=== PATIENT | male | born 1955 | race Caucasian/White ===

== ENCOUNTER 2017-01-20 08:43 | Emergency (ER) | payer OTHER ==
[2017-01-20 08:59] VITALS: BP 118/90
[2017-01-20] MEDS ORDERED: PROPARACAINE HCL 0.5% OPTH OP ONE (08:59)
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
[2017-01-20] MEDS: PROPARACAINE HCL 0.5% OPTH OP ONE (09:24)
== END 2017-01-20 09:35 | disposition home or self-care (01) ==
LOC: ED 08:43
DX: S05.01XA Injury of conjunctiva and corneal abrasion without foreign body, right eye, initial encounter (principal); X58.XXXA Exposure to other specified factors, initial encounter; Y93.9 Activity, unspecified; Y99.9 Unspecified external cause status
CPT/HCPCS: 99283; A9270-GY

== ENCOUNTER 2017-11-15 19:00 | Emergency (ER) | payer OTHER ==
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
[2017-11-15] MEDS: CEPHALEXIN 250 MG/5 ML BTL PO ONE (20:07)
[2017-11-15] MEDS: NEOMYCIN/BACITRACIN/POLYMYXINB 1 EACH OINT.PACK TP ONE (20:08)
[2017-11-15 20:35] VITALS: BP 128/72
== END 2017-11-15 20:20 | disposition home or self-care (01) ==
LOC: ED 19:00
DX: L98.9 Disorder of the skin and subcutaneous tissue, unspecified (principal); T24.131A Burn of first degree of right lower leg, initial encounter; X17.XXXA Contact with hot engines, machinery and tools, initial encounter; Y92.9 Unspecified place or not applicable; Y93.9 Activity, unspecified; Y99.9 Unspecified external cause status
CPT/HCPCS: 99282

== ENCOUNTER 2018-01-03 21:40 | Emergency (ER) | payer OTHER ==
[2018-01-03] MEDS: 0.9 % SODIUM CHLORIDE 1,000 ML IV ONE (22:13)
[2018-01-03] MEDS: KETOROLAC TROMETHAMINE 30 MG/1ML VIAL IVP ONE (22:13)
[2018-01-03 22:30] LABS: eGFR (Non-African) > 60
--- NOTE | 2018-01-03 22:52 | ED Physician Documentation ---
Flank Pain - HISTORIAN Historian: patient, other (daughter) - HPI Stated Complaint: Hematuria Chief Complaint: Flank Pain Onset: days ago Duration: waxing, waning Timing: worse Context: denies: out of country travel, bad food, recent trauma Severity: severe Quality: pain Associated Symptoms: chills Exacerbated by: nothing Relieved by: nothing Further Comments: yes (62 year old male patient presents with complaint of hematuria for the past 3 hours with right flank pain x 2 days. C/o frequency and dysuria.) - ROS CONST: no problems GI/: problems urinating CVS/RESP: denies: palpitations, shortness of breath, hurts to breath, cough EYES/ENT: none MS/SKIN/LYMPH: none NEURO/PSYCH: none - SOCIAL HX Smoking History: cigarettes - FAMILY HX Family History: none - PAST HX Past History: kidney stones Other History: hypertension - VITAL SIGNS Vital Signs: Vital Signs Temp Pulse Resp BP Pulse Ox 97.3 F L 84 16 160/97 96 01/03/18 21:45 01/03/18 21:45 01/03/18 21:45 01/03/18 21:45 01/03/18 21:45 - REVIEWED ASSESSMENTS Nursing Assessment Reviewed: Yes Vitals Reviewed: Yes Progress - Progress Progress: Reviewed CT findings with patient's daughter; patient sleeping on stretcher. will treat cystitis. Instructed patient and daughter to have a follow up UA after antibiotic; risks and benefits explained. Verbalized understanding. ED Results Lab/Radiology - Lab Results Lab Results: Lab Results 01/03/18 22:07 Sodium 135 mmol/L L mmol/L (136-145) Potassium 3.6 mmol/L mmol/L (3.5-5.1) Chloride 99 mmol/L mmol/L (98-107) Carbon Dioxide 30 mmol/L mmol/L (22-30) BUN 13 mg/dL mg/dL (9-20) Creatinine 0.80 mg/dL mg/dL (0.66-1.25) Estimated Creat Clear 125 Est GFR ( Amer) > 60 (60 - ) Est GFR (Non-Af Amer) > 60 (60 - ) Glucose 110 mg/dL H mg/dL (74-106) Calcium 8.6 mg/dL mg/dL (8.4-10.2) Total Bilirubin 0.1 mg/dL L mg/dL (0.2-1.3) AST 29 U/L U/L (15-46) ALT 47 U/L U/L (13-69) Alkaline Phosphatase 106 U/L U/L (38-126) Total Protein 7.1 g/dL g/dL (6.3-8.2) Albumin 3.7 g/dL g/dL (3.5-5.0) - Radiology Radiology Impressions: CT of the abdomen and pelvis without contrast Clinical history: Right flank pain and hematuria beginning today. History of kidney stones. Technique: CT of the abdomen and pelvis is performed without oral or intravenous administration of contrast. Sagittal and coronal reconstructions were performed by the technologist. Findings: Visualized lung bases are clear. There is geographic fatty infiltration in the liver. Spleen demonstrates normal attenuation without focal defect. The gallbladder is normally distended. There is no pancreatic or adrenal abnormality. The kidneys are of normal size, shape and position. There is no renal or ureteral calculus and no hydronephrosis. The appendix is visualized and is within limits. Gas and stool are present throughout the colo n. Bladder wall is thickened with stranding in the surrounding fat consistent with cystitis. Vascular calcification is incidentally noted Impression: 1. No evident renal or ureteral calculus and no hydronephrosis. 2. Bladder wall thickening with stranding in the adjacent fat consistent with cystitis. 3. Geographic fatty infiltration of the liver. Electronically signed on Jan 03, 2018 10:44:12 PM CDT by: Antoine White - Orders Orders: ED Orders Category Date Time Status Place IV Lock 1T Care 01/03/18 22:03 Active RENAL STONE PROTOCOL [CT ABD & PELVIS W/O CON] Stat Exams 01/03/18 Taken CBC REF Stat Lab 01/03/18 22:06 Received CBC/PLATELET/DIFF Stat Lab 01/03/18 22:06 Received CMP Stat Lab 01/03/18 22:07 Completed UA W/MICRO IF INDICATED Stat Lab 01/03/18 22:03 Ordered 0.9 % Sodium Chloride [Normal Saline] 1,000 ml Med 01/03/18 22:03 Discontinued IV NOW Ketorolac Tromethamine [Toradol] Med 01/03/18 22:03 Discontinued 30 mg IVP NOW ONE Abdominal Pain Physical Exam - Physical Exam General Appearance: mild distress EENT: eye inspection normal, MOR[place] RESPIRATORY: no resp distress, chest non-tender, breath sounds normal CVS: reg rate & rhythm, heart sounds normal, equal pulses, no murmur, no gallop, PMI nml, no JVD, no friction rub, 24 ABDOMEN: soft, no organomegaly, normal bowel sounds, no abdominal bruit, no distension BACK: CVA tenderness (R) SKIN: normal color, warm/dry, NR, INT, PAL, DR EXTREMITIES: non-tender, normal range of motion, no evidence of injury, no edema, J, SHOE RECONDITIONER NEURO: oriented X3, motor nml, sensation nml, mood/affect nml Vital Signs: Vital Signs Temp Pulse Resp BP Pulse Ox 97.3 F L 84 16 160/97 96 01/03/18 21:45 01/03/18 21:45 01/03/18 21:45 01/03/18 21:45 01/03/18 21:45 Discharge Clincal Impression: Dysuria, Cystitis Hematuria Qualifiers: Hematuria type: gross Qualified Code(s): R31.0 - Gross hematuria Prescriptions: Ciprofloxacin HCl [Cipro] 500 mg PO BID #20 tablet Referrals: Primary Doctor,No [Primary Care Provider] - 2 Days Additional Instructions: glucose and syrup weigher your prescription and start it tomorrow Drink at least 64 oz of water daily. Avoid caffeinated beverages You may want to try Azo over the counter for urinary pain. Follow package directions Tylenol every 4 hours as needed for pain/fever or ibuprofen every 6 hours as needed for pain and fever See your primary care provider for a repeat UA 48 hours after completing your antibiotic. You need to see urology for further evaluation if you continue to have hematuria (blood in your urine) Condition: Stable Disposition: 01 HOME, SELF-CARE Decision to Admit: NO Decision Time: 22:51
[2018-01-03] MEDS: cefTRIAXone SODIUM 1 GM in 0.9 % SODIUM CHLORIDE 100 ML IV ONE (23:04)
[2018-01-03] MEDS: cefTRIAXone SODIUM 1 GM VIAL ONE (23:04)
[2018-01-03] MEDS: 0.9 % SODIUM CHLORIDE 100 ML IV ONE (23:04)
--- NOTE | 2018-01-03 23:29 | Diagnostic Imaging Report ---
LUIS MANUEL GARCIA (ADMITTING REPRESENTATIVE) - ER [facility] [address] Pending [facility] To [facility] [address] [place], [place]. [address] Report Submission Date: Jan 03, 2018 10:44:12 PM CDT Patient Study Name: LEIGH MURILLO Date: Jan 03, 2018 10:21:47 PM CDT Modality Type: CT Gender: M Description: CT ABD PELVIS W/O CO : 59 Institution: [facility] Physician: LUIS MANUEL GARCIA (SEBASTIAN) - ER CT of the abdomen and pelvis without contrast Clinical history: Right flank pain and hematuria beginning today. History of kidney stones. Technique: CT of the abdomen and pelvis is performed without oral or intravenous administration of contrast. Sagittal and coronal reconstructions were performed by the technologist. Findings: Visualized lung bases are clear. There is geographic fatty infiltration in the liver. Spleen demonstrates normal attenuation without focal defect. The gallbladder is normally distended. There is no pancreatic or adrenal abnormality. The kidneys are of normal size, shape and position. There is no renal or ureteral calculus and no hydronephrosis. The appendix is visualized and is within limits. Gas and stool are present throughout the colon. Bladder wall is thickened with stranding in the surrounding fat consistent with cystitis. Vascular calcification is incidentally noted Impression: 1. No evident renal or ureteral calculus and no hydronephrosis. 2. Bladder wall thickening with stranding in the adjacent fat consistent with cystitis. 3. Geographic fatty infiltration of the liver. Electronically signed on Jan 03, 2018 10:44:12 PM CDT by: Antoine IBANEZ
[2018-01-04 00:01] LABS: BASO % 0.4 % (0.0-1.5); EOS % 4.6 % (0.0-6.8); LYMPH ABS # 1.62 thou/uL (0.60-4.00); MCH. 31.6 pg (28.0-34.0); MCV 94.9 fL (80.0-100.0); MONOCYTE ABS # 0.57 thou/uL (0.00-0.90); PLATELET COUNT 346 thou/uL (130-400)
[2018-01-04 00:17] VITALS: BP 152/78
== END 2018-01-04 00:05 | disposition home or self-care (01) ==
LOC: ED 21:40
DX: N30.91 Cystitis, unspecified with hematuria (principal); R30.0 Dysuria
CPT/HCPCS: 74176; 80053; 85025; J0696; J1885; J7030; 96365; 96375; S1016

== ENCOUNTER 2018-05-21 11:33 | Emergency (ER) | payer OTHER ==
--- NOTE | 2018-05-21 11:38 | ED Physician Documentation ---
Lower Extremity Problem - HISTORIAN Historian: patient - HPI Stated Complaint: fell and has knee pain and ankle Chief Complaint: Fall Location of Injury: L ankle, L leg, L knee Onset: minutes (45) Timing: still present Duration: constant Recent Injury: Yes (fell getting into his car ) Where: home Severity: mild Quality: pain, swelling, tenderness Exacerbated By: walking, movement Relieved By: nothing Associated Symptoms: denies: chest pain, shortness of breath, rapid heart rate, fainting Further Comments: yes (He was getting into his car with his cane (which he uses daily due to a previous knee issue where he was encoruaged to get a knee replacement) and he slipped with his cane and his right leg went under the car and his left knee went under him. He had no LOC. He) - ROS CONST: no problems MS/SKIN/LYMPH: none CVS/RESP: none GI/: none EYES/ENT: none - PAST HX Past History: none PE Risk Factors: none Surgeries/Procedures: other (back surgery ) Allergies/Adverse Reactions: Allergies Allergy/AdvReac Type Severity Reaction Status Date / Time No Known Allergies Allergy Verified 05/21/18 13:22 Home Medications: Ambulatory Orders Medication Instructions Recorded Montelukast Sodium [Singulair] 1 tab PO DAILY 11/29/14 Allopurinol [Zyloprim] 100 mg PO DAILY 01/20/17 Lisinopril [Zestril] 20 mg PO DAILY 01/20/17 Ciprofloxacin HCl [Cipro] 500 mg PO BID #20 tablet 01/03/18 - SOCIAL HX Smoking History: cigarettes Alcohol Use: none Drug Use: none - FAMILY HX Family History: none - VITAL SIGNS Vital Signs: Vital Signs Temp Pulse Resp BP Pulse Ox 98.9 F 93 H 16 122/83 94 05/21/18 11:33 05/21/18 14:00 05/21/18 14:00 05/21/18 14:00 05/21/18 14:00 - REVIEWED ASSESSMENTS Nursing Assessment Reviewed: Yes Vitals Reviewed: Yes Progress - Progress Progress: 1215: pain is 6/10 DG 1225: Pain is 4/10 DG 1229: [facility] to [facility] - discussed case with Sarah - Ortho surgeon nurse who states he will see him on outpt service DG 1242: sleeping in room states pain is 2/10 DG ED Results Lab/Radiology - Orders Orders: ED Orders Category Date Time Status Walking Boot 1T Care 05/21/18 13:15 Active ANKLE 3 VIEWS OR MORE [RAD] Stat Exams 05/21/18 Completed KNEE 3 VIEWS [RAD] Stat Exams 05/21/18 Completed TIBIA & FIBULA 2 VIEW [RAD] Stat Exams 05/21/18 Completed Morphine Sulfate Med 05/21/18 11:47 Discontinued 10 mg .ROUTE .STK-MED ONE Morphine Sulfate Med 05/21/18 11:46 Discontinued 2 mg IM NOW ONE Lower Extremity Problem - EXAM General Appearance: moderate distress Hips: bilateral hip: non-tender, normal inspection, normal range of motion, no evidence of injury, bone tenderness, deformity, ecchymosis, limited range of motion, nodules, pain, soft tissue tenderness, swelling, other Legs: right: non-tender, normal inspection, normal range of motion, no evidence of injury, left: bone tenderness, deformity (left knee is always slightly swollen per pt ), joint effusion, limited range of motion, pain, soft tissue tenderness, swelling, N/A: ecchymosis, nodules Knees: right: non-tender, normal inspection, normal range of motion, left: bone tenderness, deformity, joint effusion, pain, soft tissue tenderness, swelling, N/A: ecchymosis, nodules Ankle: right: non-tender, normal inspection, normal range of motion, no evidence of injury, left: bone tenderness, pain, soft tissue tenderness, swelling Neuro/Tendon: normal sensation, normal motor functions, responds to pain EENT: eye inspection normal, no signs of dehydration RESPIRATORY: no resp distress, chest non-tender, breath sounds normal CVS: reg rate & rhythm, heart sounds normal JOINT: joints nml VASCULAR: no vascular compromise, pulses full/equal NEURO/PSYCH: oriented X3 SKIN: warm/dry BACK: normal inspection Discharge Clincal Impression: Fracture of distal fibula Qualifiers: Encounter type: initial encounter Fracture type: closed Fracture morphology: other fracture Laterality: left Qualified Code(s): S82.832A - Other fracture of upper and lower end of left fibula, initial encounter for closed fracture Referrals: Primary Doctor,No [Primary Care Provider] - 2 Days Comments: 1. Discussed case with Jolene ([place] [employer] Operator) and Sarah bland nurse. Dr Barakat will see pt SundayMay 28 at 2:45 pm 2. Percocet take 1 by mouth every 6 hours as needed for pain 3. Keep boot on leg 4. Notify PCP of any concerns or Dr Barakat Office 5. Return to ER for any concerns Condition: Stable Disposition: 01 HOME, SELF-CARE Decision to Admit: NO Date of Decison to Admit: 05/21/18 Decision Time: 13:07
[2018-05-21] MEDS ORDERED: MORPHINE SULFATE 2 MG/ML VIAL IM ONE (11:46)
[2018-05-21] MEDS ORDERED: MORPHINE SULFATE 10 MG/ML VIAL ONE (11:47)
[2018-05-21 12:34] VITALS: BP 122/83
--- NOTE | 2018-05-21 13:02 | Diagnostic Imaging Report ---
CAM[facility] PARKER [facility] [address] [facility].[address] [address] Report Submission Date: May 21, 2018 12:22:47 PM SUPERINTENDENT DRILLING AND PRODUCTION Patient Study Name: LEIGH MURILLO Date: May 21, 2018 11:55:41 AM SUPERINTENDENT DRILLING AND PRODUCTION Modality Type: DX Gender: M Description: ANKLE 3 VIEWS OR MORE : 59 Institution: [facility] Physician: CAMDEN PARKER Left ankle History: Status post fall on ice Three views of the left ankle were obtained which demonstrate the presence of an acute, complete, spiral type but nondisplaced fracture of the distal fibula. The distal tibia, talar dome and ankle mortise are intact. Impression: Acute, complete but nondisplaced spiral type fracture of the distal fibula. No additional osseous abnormality. Electronically signed on May 21, 2018 12:22:47 PM SUPERINTENDENT DRILLING AND PRODUCTION by: Keerthi IBANEZ
--- NOTE | 2018-05-21 13:02 | Diagnostic Imaging Report ---
CAM[facility] PARKER [facility] [address] [facility] [address] [address] Report Submission Date: May 21, 2018 12:21:48 PM HOSE OPERATOR Patient Study Name: LEIGH MURILLO Date: May 21, 2018 11:55:41 AM HOSE OPERATOR Modality Type: DX Gender: M Description: KNEE 3 VIEWS : 59 Institution: [facility] Physician: CAMDEN PARKER Left knee History: Fell on ice AP, lateral and sunrise views of the left knee were obtained which demonstrate depression of the medial tibial plateau with osteophytosis along the medial femoral condyle and medial tibial plateau. This depression of the medial tibial plateau does appear chronic in nature, likely an old and healed plateau fracture. There is moderate narrowing of medial compartment joint space. Lateral compartment joint space is maintained. There is moderate narrowing of the patellofemoral compartment joint space. No acute fracture site is noted and no joint effusion is seen. Impression: Chronic findings of the left knee as described. There is depression of the medial tibial plateau but these findings do appear to be chronic. Please correlate with the patient's clinical history No acute fracture site is seen. Electronically signed on May 21, 2018 12:21:48 PM HOSE OPERATOR by: Keerthi IBANEZ
--- NOTE | 2018-05-21 13:03 | Diagnostic Imaging Report ---
CAMDEN PARKER [facility] [address] [facility] [address] [address] Report Submission Date: May 21, 2018 12:18:55 PM AUTOCAD ELECTRICAL DESIGNER Patient Study Name: LEIGH MURILLO Date: May 21, 2018 11:55:55 AM AUTOCAD ELECTRICAL DESIGNER Modality Type: DX Gender: M Description: TIBIA & FIBULA 2 VIEW : 59 Institution: [facility] Physician: CAMDEN PARKER Left tibia and fibula History: Status post fall on ice AP and lateral projections of the left tibia and fibula were obtained which demonstrate the presence of an acute, complete to nearly complete but nondisplaced fracture of the distal fibula. Otherwise, no acute osseous abnormalities are noted. Please see separate left knee report. Impression: Acute, complete to nearly complete but nondisplaced fracture of the distal fibula. Please see separate left knee report with regard to knee findings. Electronically signed on May 21, 2018 12:18:55 PM AUTOCAD ELECTRICAL DESIGNER by: Keerthi IBANEZ
== END 2018-05-21 13:30 | disposition home or self-care (01) ==
LOC: ED 11:33
DX: S82.832A Other fracture of upper and lower end of left fibula, initial encounter for closed fracture (principal); W01.0XXA Fall on same level from slipping, tripping and stumbling without subsequent striking against object, initial encounter; Y93.89 Activity, other specified; Y92.810 Car as the place of occurrence of the external cause
CPT/HCPCS: 29515; 73562; 73590; 73610; 96372; 99283; 99284; J2270